=== PATIENT | female | born 1995 | race Caucasian/White ===

== ENCOUNTER 2016-11-03 14:25 | Emergency (ER) | payer OTHER ==
[2016-11-03 16:23] VITALS: BP 106/66
--- NOTE | 2016-11-03 17:14 | UC ---
Throat Pain/Nasal Abhijit HPI - HPI Summary HPI Summary: Started with nasal abhijit and ST about 9 days ago, ST is resolved but nasal abhijit and sinus pressure remains. No cough or trouble breathing. Denies fever. - History of Current Complaint Chief Complaint: UCRespiratory Stated Complaint: SINUSES Time Seen by Provider: 11/03/16 16:52 Hx Obtained From: Patient Hx Last Menstrual Period: 10/24/16 ?: No Onset/Duration: Gradual Onset, Lasting Days Severity: Moderate Cough: None Associated Signs & Symptoms: Positive: Sinus Discomfort, Nasal Discharge - Allergies/Home Medications Allergies/Adverse Reactions: Allergies Allergy/AdvReac Type Severity Reaction Status Date / Time scallops Allergy Unknown Hives Uncoded 08/16/14 15:12 Home Medications: Home Medications Norethin Acet & Estrad-Fe [Loestrin Fe 1.5/30 1.5-30 mg-Mcg] 1 tab PO DAILY [History Confirmed 11/03/16] PMH/Surg Hx/FS Hx/Imm Hx Endocrine History Of: Denies: Diabetes, Thyroid Disease, Hyperthyroidism, Hypothyroidism Cardiovascular History Of: Denies: Cardiac Disorders, Hypertension Respiratory History Of: Denies: COPD, Asthma GI/ History Of: Denies: Ulcer Neurological History Of: Denies: TIA, Seizures Psychological History Of: Denies: Anxiety, Depression - Surgical History Surgical History: None - Family History Known Family History: Positive: Hypertension - Social History Occupation: Student Alcohol Use: Weekly Substance Use Type: None Smoking Status (MU): Never Smoked Tobacco - Immunization History Vaccination Up to Date: Yes Review of Systems Constitutional: Negative Skin: Negative Eyes: Negative ENT: Sore Throat, Nasal Discharge Respiratory: Negative Cardiovascular: Negative Gastrointestinal: Negative Genitourinary: Negative Motor: Negative Neurovascular: Negative Musculoskeletal: Negative Neurological: Negative Psychological: Negative All Other Systems Reviewed And Are Negative: Yes Physical Exam Triage Information Reviewed: Yes Appearance: Well-Appearing, No Pain Distress, Well-Nourished Vital Signs: Initial Vital Signs Temp 98 F 11/03/16 16:19 Pulse 58 11/03/16 16:19 Resp 14 11/03/16 16:19 BP 106/66 11/03/16 16:19 Pulse Ox 100 11/03/16 16:19 Vital Signs Reviewed: Yes Eye Exam: Normal Eyes: Positive: Conjunctiva Clear ENT: Positive: Hearing grossly normal, Pharynx normal, Nasal congestion - marked , TMs normal, Other: - maxillary sinus tenderness. Negative: Tonsillar swelling , Tonsillar exudate Dental Exam: Normal Neck exam: Normal Neck: Positive: Supple, Nontender, No Lymphadenopathy Respiratory Exam: Normal Respiratory: Positive: Chest non-tender, Lungs clear, Normal breath sounds, No respiratory distress, No accessory muscle use Cardiovascular Exam: Normal Cardiovascular: Positive: RRR, No Murmur Musculoskeletal Exam: Normal Neurological Exam: Normal Psychological Exam: Normal Skin Exam: Normal Throat Pain/Nasal Course/Dx - Differential Dx/Diagnosis Provider Diagnoses: sinusitis Discharge - Discharge Plan Condition: Stable Disposition: HOME Prescriptions: Amoxicillin/Clavulanate TAB* [Augmentin TAB 875*] 875 mg PO BID #14 tab Patient Education Materials: Sinusitis (ED) Referrals: Adriane Salinas MD [Primary Care Provider] - If Needed
== END 2016-11-03 17:19 | disposition home or self-care (01) ==
LOC: UCCORT 14:25
DX: J32.9 Chronic sinusitis, unspecified (principal)
CPT/HCPCS: 99212; G0463

== ENCOUNTER 2017-01-22 13:28 | Emergency (ER) | payer OTHER ==
[2017-01-22 13:52] VITALS: BP 110/69
--- NOTE | 2017-01-22 14:02 | UC ---
Ear Complaint HPI - HPI Summary HPI Summary: The patient comes in today for: 1. Sore throat, bilateral otalgia, and fever: Onset: Yesterday. Palliative/provocative: Swallowing and talking makes her symptoms worse. Quality: Sharp Region: Right portion of the throat more than the left. Severity: Not talking or swallowing 3/10 but with talking or swallowing--7/10 Time: Constant. Associated symptoms: Temperature this AM: 101 Rhinitis: None. Cough: None. STrep exposure: NOne Home treatment: Advil. * - History of Current Complaint Stated Complaint: FEVER,EAR COMPLAINTS Time Seen by Provider: 01/22/17 13:48 Hx Obtained From: Patient Hx Last Menstrual Period: 01/16/17 ?: No - Allergies/Home Medications Allergies/Adverse Reactions: Allergies Allergy/AdvReac Type Severity Reaction Status Date / Time No Known Allergies Allergy Verified 01/22/17 13:52 Home Medications: Home Medications Ibuprofen [Advil] 400 mg PO 01/22/17 [History] PMH/Surg Hx/FS Hx/Imm Hx Previously Healthy: No - Family planning/BCP Endocrine History Of: Denies: Diabetes, Thyroid Disease, Hyperthyroidism, Hypothyroidism, Dyslipidemia Cardiovascular History Of: Denies: Cardiac Disorders, Hypertension, Pacemaker/ICD, Myocardial Infarction , Congestive Heart Failure, Atrial Fibrillation, Deep Vein Thrombosis, Bleeding Disorders Respiratory History Of: Denies: COPD, Asthma, Bronchitis, Pneumonia, Pulmonary Embolism GI/ History Of: Denies: Gastroesophageal Reflux, Ulcer, Gastrointestinal Bleed, Gall Bladder Disease, Kidney Stones, Diverticulitis, Renal Disease, Urosepsis Neurological History Of: Denies: TIA, CVA, Dementia, Seizures, Migraine Psychological History Of: Denies: Anxiety, Depression, Bipolar Disorder, Schizophrenia, Post Traumatic Stress Disorder Cancer History Of: Denies: Lung Cancer, Colorectal Cancer, Breast Cancer, Prostate Cancer, Cervical Cancer Other History Of: Negative For: HIV, Hepatitis B, Hepatitis C, Anticoagulant Therapy - Surgical History Surgical History: None - Family History Known Family History: Negative: Hypertension, Diabetes - Social History Occupation: Employed Part-time, Student Alcohol Use: Weekly Substance Use Type: None Smoking Status (MU): Never Smoked Tobacco - Immunization History Vaccination Up to Date: Yes Review of Systems Constitutional: Negative, Fever Skin: Negative Eyes: Negative ENT: Sore Throat Respiratory: Negative Cardiovascular: Negative Gastrointestinal: Negative Genitourinary: Negative Musculoskeletal: Arthralgia, Myalgia All Other Systems Reviewed And Are Negative: Yes Physical Exam Triage Information Reviewed: Yes Appearance: Well-Appearing, No Pain Distress, Well-Nourished Vital Signs: Initial Vital Signs Temp 99.7 F 01/22/17 13:48 Pulse 91 01/22/17 13:48 Resp 18 01/22/17 13:48 BP 110/69 01/22/17 13:48 Pulse Ox 100 01/22/17 13:48 Vital Signs Reviewed: Yes Eyes: Positive: Conjunctiva Clear. Negative: Discharge ENT: Negative: Pharyngeal erythema, Nasal congestion, Nasal drainage, TM bulging , TM dull, TM red, Tonsillar swelling, Tonsillar exudate, Muffled/hoarse voice Dental: Negative: Gross Decay/Caries @, Dental Fracture @ Neck: Positive: Supple, Nontender, No Lymphadenopathy. Negative: Nuchal Rigidity Respiratory: Positive: Lungs clear, No respiratory distress, No accessory muscle use. Negative: Crackles, Wheezing Cardiovascular: Positive: RRR, No Murmur Abdomen Description: Positive: Nontender, No Organomegaly, Soft. Negative: Distended, Guarding Musculoskeletal: Positive: Strength Intact, ROM Intact, No Edema. Negative: Strength Limited @ Neurological: Positive: Alert, Muscle Tone Normal Psychological: Positive: Age Appropriate Behavior, Consolable Skin: Negative: rashes, breakdown Diagnostics - Laboratory Diagnostic Studies Completed/Ordered: Strep test: (+) Ear Complaint Course/Dx - Course Course Of Treatment: Patient and mother were told of the positive result. She agrees to taking Pen VK 500 mg bid for 10 days. - Differential Dx/Diagnosis Provider Diagnoses: Strep throat. Discharge - Discharge Plan Condition: Stable Disposition: HOME Patient Education Materials: Strep Throat (ED) Forms: *Work Release Referrals: Adriane Salinas MD [Primary Care Provider] - Additional Instructions: Please take all the medication until it is gone. Please use a back-up method for control while on this antibiotic as antibiotics may weaken the effectiveness of control pills.
== END 2017-01-22 14:43 | disposition home or self-care (01) ==
LOC: UCEAST 13:28
DX: J02.0 Streptococcal pharyngitis (principal); H92.03 Otalgia, bilateral
CPT/HCPCS: 87651; 99212; G0463